=== PATIENT | female | born 1940 | race Caucasian/White ===

== ENCOUNTER → 2017-10-05 10:18 | Outpatient (CLI) | payer MEDICARE, BC, SELFPAY ==
[2017-10-05 10:47] VITALS: BP 129/78; PULSE 66; RESP 18; TEMP 36.6; O2SAT 97; BMI 27.4
[2017-10-05] MEDS: DENOSUMAB 60 MG/ML ML SQ (10:59)
== END ==
PROVIDERS: Family Provider Internal Medicine; PCP Internal Medicine; Visit Provider Internal Medicine
DX: M81.0 Age-related osteoporosis without current pathological fracture (principal)
CPT/HCPCS: 96372

== ENCOUNTER → 2018-04-09 08:50 | Outpatient (CLI) | payer MEDICARE, BC, SELFPAY ==
[2018-04-09 08:59] VITALS: BP 115/66; PULSE 72; RESP 18; TEMP 36.1; O2SAT 99; BMI 27.4
[2018-04-09] MEDS: DENOSUMAB 60 MG/ML ML SQ (09:02)
== END ==
PROVIDERS: Family Provider Internal Medicine; PCP Internal Medicine; Visit Provider Internal Medicine
DX: M81.0 Age-related osteoporosis without current pathological fracture (principal)
CPT/HCPCS: 96372; J0897

== ENCOUNTER → 2018-06-06 09:19 | Outpatient (CLI) | payer MEDICARE, BC, SELFPAY ==
--- NOTE | 2018-06-06 09:22 | BI_ITS ---
MAMMOGRAPHY - BILATERAL SCREENING REASON FOR EXAM: Female, 77 years old. Routine annual screening examination. PERTINENT HISTORY: Non-contributory. TECHNIQUE: Digital bilateral breast sammy (3D mammographic acquisition) in the CC and MLO projections. 2-D mediolateral oblique (MLO) and craniocaudad (CC) views of both breasts were obtained. CAD: Full Field Digital Mammography with Computer Added Detection was performed. COMPARISON: Comparison is made with prior study dated June 05, 2017 and May 25, 2016. FINDINGS: Breast Composition: The breasts are almost entirely fatty. There are no dominant masses or suspicious calcifications. No other significant abnormalities are identified. There has been no significant change since the prior study. BI/SCREENING MAMM (CAD), BILAT IMPRESSION: Stable bilateral screening mammogram. Yearly follow-up mammogram recommended. (A) ASSESSMENT CATEGORY: BIRADS Category 1: Negative. A letter regarding these results will be sent to the patient by the facility within 30 days. Approximately 10% of breast cancers are not detected by mammography. A normal mammogram should not delay biopsy of a clinically suspicious abnormality. [id number] Electronically Signed: Ion Valverde MD at 11:26 EST Tel [phone], Service support ,
--- NOTE | 2018-06-06 09:24 | BD_ITS ---
STUDY: DUAL ENERGY X-RAY ABSORPTIOMETRY / DXA REASON FOR EXAM: Female, 77 years old. Early menopause. Loss of height. TECHNIQUE: Bone Mineral Density (BMD) measurements of lumbar spine and bilateral hips were obtained. COMPARISON: Comparison is made with prior study dated November 18, 2015. FINDINGS: Lumbar Spine (L1-L4): g/cm2 (0.900) / T-score (-2.2) / Z-score (-0.4) Findings are suggestive of osteopenia with a moderate fracture risk. Left Femur Total: g/cm2 (0.802) / T-score (-1.6) / Z-score (0.3) Left Femoral Neck: g/cm2 (0.798) / T-score (-1.7) / Z-score (0.4) Right Femur Total: g/cm2 (0.946) / T-score (-0.5) / Z-score (1.4) Right Femoral Neck: g/cm2 (0.883) / T-score (-1.1) / Z-score (1.0) The T-Scores on the most recent prior examination were: Lumbar Spine (L1-L4): There has been improvement of bone density since the previous examination. Left Femur Total: which represents a worsening of 5.2%. Right Femur Total: which represents an improvement of 1.3%. BD/Dexa Bone Density Study IMPRESSION: The patient is considered osteopenic as outlined below according to [place] Organization (WHO) criteria with a moderate fracture risk. There has been improvement of bone density since the previous examination. Reference Information: The T-score is the number of standard deviations above or below the standard which is normal for young adults at their peak bone mineral density. The World Health Organization (WHO) interprets the T-scores as follows: Above -1 Normal bone density Between -1 and -2.5 Osteopenia Equal to / or below -2.5 Osteoporosis As a practical clinical guideline, osteopenia may be graded as follows: Mild -1 through -1.5 Moderate -1.6 through -2.0 Severe -2.1 through -2.4 The Z-score is the number of standard deviations above or below age-matched controls. A Z-score of less than -1.5 would be considered abnormal. References: 1. NIH Osteoporosis and Related Bone Diseases http://www.osteo.org 2. International Society for Clinical Densitometry http://www.iscd.org 3. National Osteoporosis Foundation http://www.nof.org Electronically Signed: Ion Valverde MD at 8:57 EST Tel [phone], Service support ,
== END ==
PROVIDERS: Family Provider Internal Medicine; PCP Internal Medicine; Referring Provider Internal Medicine; Visit Provider Internal Medicine
DX: Z12.31 Encounter for screening mammogram for malignant neoplasm of breast (principal); Z78.0 Asymptomatic menopausal state
CPT/HCPCS: 77063; 77067; 77080

== ENCOUNTER → 2018-10-08 08:57 | Outpatient (CLI) | payer MEDICARE, BC, SELFPAY ==
[2018-04-09 08:59] VITALS: BMI 27.4
[2018-10-08] MEDS: DENOSUMAB 60 MG/ML ML SQ (09:17)
[2018-10-08 09:20] VITALS: BP 112/58; PULSE 77; RESP 16; TEMP 36; O2SAT 97; BMI 27.4
== END ==
PROVIDERS: Family Provider Internal Medicine; PCP Internal Medicine; Visit Provider Internal Medicine
DX: M81.0 Age-related osteoporosis without current pathological fracture (principal)
CPT/HCPCS: 96372; J0897

== ENCOUNTER → 2019-04-10 12:52 | Outpatient (CLI) | payer MEDICARE, BC, SELFPAY ==
[2018-10-08 09:20] VITALS: BMI 27.4
[2019-04-10 13:12] VITALS: BP 125/69; PULSE 58; RESP 16; TEMP 36.8; O2SAT 99; BMI 28.0
[2019-04-10] MEDS: DENOSUMAB 60 MG/ML ML SQ (13:17)
== END ==
PROVIDERS: Family Provider Internal Medicine; PCP Internal Medicine; Referring Provider Internal Medicine; Visit Provider Internal Medicine
DX: M81.0 Age-related osteoporosis without current pathological fracture (principal)
CPT/HCPCS: 96372; J0897

== ENCOUNTER → 2019-06-07 09:51 | Outpatient (CLI) | payer MEDICARE, BC, SELFPAY ==
[2018-10-08 09:20] VITALS: BMI 27.4
[2019-04-10 13:12] VITALS: BMI 28.0
--- NOTE | 2019-06-07 09:52 | BI_ITS ---
MAMMOGRAPHY - BILATERAL SCREENING REASON FOR EXAM: Female, 78 years old. Routine annual screening examination. PERTINENT HISTORY: Non-contributory. TECHNIQUE: Digital bilateral breast sammy (3D mammographic acquisition) in the CC and MLO projections. 2-D mediolateral oblique (MLO) and craniocaudad (CC) views of both breasts were obtained. CAD: Full Field Digital Mammography with Computer Added Detection was performed. COMPARISON: Comparison is made with prior examination dated June 06, 2018 and June 05, 2017. FINDINGS: Breast Composition: The breasts are almost entirely fatty. There are no dominant masses or suspicious calcifications. No other significant abnormalities are identified. There has been no significant change since the prior study. BI/SCREENING MAMM (CAD), BILAT IMPRESSION: Stable bilateral screening mammogram. Yearly follow-up mammogram recommended. (A) ASSESSMENT CATEGORY: BIRADS Category 1: Negative. A letter regarding these results will be sent to the patient by the facility within 30 days. Approximately 10% of breast cancers are not detected by mammography. A normal mammogram should not delay biopsy of a clinically suspicious abnormality. [id number] Electronically Signed: Ion Valverde, at 11:23 EST , Service support ,
== END ==
PROVIDERS: Family Provider Internal Medicine; PCP Internal Medicine; Referring Provider Internal Medicine; Visit Provider Internal Medicine
DX: Z12.31 Encounter for screening mammogram for malignant neoplasm of breast (principal)
CPT/HCPCS: 77063; 77067

== ENCOUNTER → 2019-08-02 12:39 | Outpatient (CLI) | payer MEDICARE, BC, SELFPAY ==
[2019-04-10 13:12] VITALS: BMI 28.0
--- NOTE | 2019-08-02 12:46 | ECHOD_ITS ---
Reason For Study: Mitral regurgitation Procedure This was a 2D Doppler, Color Flow transthoracic echocardiogram. Exam performed in department. Left Ventricle Normal LV size. Left ventricular systolic function is normal. The estimated ejection fraction is 60 %. Stage 1 diastolic dysfunction. No regional wall motion abnormalities noted. Right Ventricle Normal RV size. Normal systolic function. Atria Normal left atrium. Normal right atrium. Hypermobile atrial septum. Patent foramen ovale. Mitral Valve Normal mitral valve. Mild (1+) eccentric mitral valve insufficiency. Tricuspid Valve Normal tricuspid valve. Mild tricuspid valve insufficiency. Aortic Valve Trisinus/trileaflet aortic valve. Pulmonic Valve Normal pulmonic valve. Great Vessels Normal aortic root. The pulmonary artery is normal size. Normal inferior vena cava. Pericardium/Pleural No pericardial effusion. Medication 22 gauge I.V. with prn adaptor inserted into right arm. Performed a rapid injection of agitated mix of 9 cc saline and 1cc air to assess for atrial septal defect. MMode/2D Measurements & Calculations LVIDd: 3.7 cm IVSd: 0.91 cm Ao root diam: 3.3 cm LVIDs: 2.2 cm LVPWd: 0.86 cm RVDd: 2.7 cm FS: 39.4 % LAV(MOD-bp): 44.8 ml LA A4 area: 15.7 cm2 LA dimension(2D): 3.2 cm LAV(MOD-bp) Indexed: 25.5 ml/m2 LAV(MOD-sp2): 50.3 ml LAV(MOD-sp4): 37.5 ml RA A4 area: 12.3 cm2 Doppler Measurements & Calculations MV E max johnny: 82.6 cm/sec Lat Peak E' Johnny: 9.8 cm/sec Med Peak E' Johnny: 5.8 cm/sec MV A max johnny: 108.5 cm/sec E/E' lat: 8.5 E/E' med: 14.4 MV E/A: 0.76 Ao V2 max: 168.2 cm/sec LV V1 max: 107.6 cm/sec PA V2 max: 92.3 cm/sec Ao max P.3 mmHg LV V1 max P.6 mmHg TR max johnny: 210.3 cm/sec TR max P.7 mmHg Interpretation Summary Hypermobile atrial septum. Normal LV size. Left ventricular systolic function is normal. The estimated ejection fraction is 60 %. Stage 1 diastolic dysfunction. Mild (1+) eccentric mitral valve insufficiency. Patent foramen ovale. Ordering Physician: Trudy Irby Referring Physician: Trudy Irby Performed By: Marlyn Monroe RDCS
== END ==
PROVIDERS: Family Provider Internal Medicine; PCP Internal Medicine; Referring Provider Internal Medicine; Visit Provider Internal Medicine
DX: I34.0 Nonrheumatic mitral (valve) insufficiency (principal)
CPT/HCPCS: 93306; A4216

== ENCOUNTER → 2019-10-08 11:18 | Outpatient (CLI) | payer MEDICARE, BC, SELFPAY ==
[2019-04-10 13:12] VITALS: BMI 28.0
[2019-10-08 11:29] VITALS: BP 134/57; PULSE 62; RESP 16; TEMP 36.2; O2SAT 99; BMI 27.4
[2019-10-08] MEDS: DENOSUMAB 60 MG/ML ML SQ (11:40)
== END ==
PROVIDERS: Family Provider Internal Medicine; PCP Internal Medicine; Referring Provider Internal Medicine; Visit Provider Internal Medicine
DX: M81.0 Age-related osteoporosis without current pathological fracture (principal)
CPT/HCPCS: 96372; J0897

== ENCOUNTER → 2020-04-15 11:22 | Outpatient (CLI) | payer MEDICARE, BC, SELFPAY ==
[2019-10-08 11:29] VITALS: BMI 27.4
[2020-04-15 11:49] VITALS: BP 111/63; PULSE 59; RESP 12; TEMP 36.2; O2SAT 97; BMI 28.3
[2020-04-15] MEDS: DENOSUMAB 60 MG/ML SQ (11:55)
== END ==
PROVIDERS: PCP Internal Medicine; Referring Provider Internal Medicine; Visit Provider Internal Medicine
DX: M81.0 Age-related osteoporosis without current pathological fracture (principal)
CPT/HCPCS: 96372; J0897

== ENCOUNTER → 2020-06-10 11:23 | Outpatient (CLI) | payer MEDICARE, BC, SELFPAY ==
[2019-10-08 11:29] VITALS: BMI 27.4
[2020-04-15 11:49] VITALS: BMI 28.3
--- NOTE | 2020-06-10 11:25 | BI_ITS ---
MAMMOGRAPHY - BILATERAL SCREENING REASON FOR EXAM: Female, 79 years old. Routine annual screening examination. PERTINENT HISTORY: Non-contributory. TECHNIQUE: Digital bilateral breast shashank (3D mammographic acquisition) in the CC and MLO projections. 2-D mediolateral oblique (MLO) and craniocaudad (CC) views of both breasts were obtained. CAD: Full Field Digital Mammography with Computer Added Detection was performed. COMPARISON: Comparison is made with prior study dated 06/07/2019 and 06/06/2018. FINDINGS: Breast Composition: The breasts are almost entirely fatty. There are no dominant masses or suspicious calcifications. No other significant abnormalities are identified. There has been no significant change since the prior study. BI/SCREEN MAMM (CAD) W/SHASHANK BILAT IMPRESSION: Stable bilateral screening mammogram. Yearly follow-up mammogram recommended. (A) ASSESSMENT CATEGORY: BIRADS Category 1: Negative. A letter regarding these results will be sent to the patient by the facility within 30 days. Approximately 10% of breast cancers are not detected by mammography. A normal mammogram should not delay biopsy of a clinically suspicious abnormality. [id number] Electronically Signed: Ion Valverde, at 13:55 EST , Service support ,
--- NOTE | 2020-06-10 11:30 | BD_ITS ---
STUDY: DUAL ENERGY X-RAY ABSORPTIOMETRY / DXA REASON FOR EXAM: Female, 79 years old. 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 COMPARISON: Comparison is made with prior study dated 06/06/2018. FINDINGS: Lumbar Spine (L1-L4): g/cm2 (0.937) / T-score (-1.9) / Z-score (0.0) Findings are suggestive of osteopenia with a moderate fracture risk. Left Femur Total: g/cm2 (0.822) / T-score (-1.5) / Z-score (0.6) Left Femoral Neck: g/cm2 (0.803) / T-score (-1.7) / Z-score (0.5) Right Femur Total: g/cm2 (0.947) / T-score (-0.5) / Z-score (1.6) Right Femoral Neck: g/cm2 (0.906) / T-score (-1.0) / Z-score (1.2) The T-Scores on the most recent prior examination were: Lumbar Spine (L1-L4): There has been improvement of bone density since the previous examination. Left Femur Total: which represents an improvement of 2.5%. Right Femur Total: which represents an improvement of 0.1%. BD/Dexa Bone Density Study IMPRESSION: The patient is considered osteopenic as outlined below according to [place] Organization (WHO) criteria with a moderate fracture risk. There has been improvement of bone density since the previous examination. Reference Information: The T-score is the number of standard deviations above or below the standard which is normal for young adults at their peak bone mineral density. The World Health Organization (WHO) interprets the T-scores as follows: Above -1 Normal bone density Between -1 and -2.5 Osteopenia Equal to / or below -2.5 Osteoporosis As a practical clinical guideline, osteopenia may be graded as follows: Mild -1 through -1.5 Moderate -1.6 through -2.0 Severe -2.1 through -2.4 The Z-score is the number of standard deviations above or below age-matched controls. A Z-score of less than -1.5 would be considered abnormal. References: 1. NIH Osteoporosis and Related Bone Diseases www osteo.org 2. International Society for Clinical Densitometry www iscd.org 3. National Osteoporosis Foundation www nof.org Electronically Signed: Ion Valverde, at 14:21 EST , Service support ,
== END ==
PROVIDERS: PCP Internal Medicine; Referring Provider Nurse Practitioner; Visit Provider Nurse Practitioner
DX: Z12.31 Encounter for screening mammogram for malignant neoplasm of breast (principal); M81.0 Age-related osteoporosis without current pathological fracture; N18.30 Chronic kidney disease, stage 3 unspecified
CPT/HCPCS: 77063; 77067; 77080

== ENCOUNTER 2020-08-20 09:24 | Outpatient (RCR) | payer MEDICARE, BC, SELFPAY ==
[2020-04-15 11:49] VITALS: BMI 28.3
== END 2020-08-20 23:59 ==
LOC: IMMUN 09:24
PROVIDERS: PCP Internal Medicine; Visit Provider Family Medicine
DX: Z23 Encounter for immunization (principal)
CPT/HCPCS: 0011A; 0012A; 91301

== ENCOUNTER → 2020-10-14 11:22 | Outpatient (CLI) | payer MEDICARE, BC, SELFPAY ==
[2019-10-08 11:29] VITALS: BMI 27.4
[2020-04-15 11:49] VITALS: BMI 28.3
[2020-10-14 11:31] VITALS: BP 147/65; PULSE 63; RESP 16; TEMP 36.1; O2SAT 97; BMI 27.4
[2020-10-14] MEDS: DENOSUMAB 60 MG/ML SC (11:35)
== END ==
PROVIDERS: PCP Internal Medicine; Referring Provider Internal Medicine; Visit Provider Internal Medicine
DX: M81.0 Age-related osteoporosis without current pathological fracture (principal)
CPT/HCPCS: 96372; J0897

== ENCOUNTER → 2021-04-14 12:58 | Outpatient (CLI) | payer MEDICARE, BC, SELFPAY ==
[2020-04-15 11:49] VITALS: BMI 28.3
[2021-04-14] MEDS: DENOSUMAB 60 MG/ML SC (13:13)
[2021-04-14 13:17] VITALS: BP 130/71; PULSE 67; RESP 16; TEMP 36.6; O2SAT 97; BMI 28.3
== END ==
PROVIDERS: PCP Internal Medicine; Referring Provider Internal Medicine; Visit Provider Internal Medicine
DX: M81.0 Age-related osteoporosis without current pathological fracture (principal)
CPT/HCPCS: 96372; J0897

== ENCOUNTER 2021-10-13 13:46 | Outpatient (CLI) | payer MEDICARE, BC, SELFPAY ==
[2021-10-13 13:56] VITALS: BP 130/64; PULSE 69; RESP 16; O2SAT 98
[2021-10-13] MEDS: DENOSUMAB 60 MG/ML SC (14:00)
== END 2021-10-13 23:59 | disposition home or self-care (01) ==
LOC: MEDOUTP 13:47
PROVIDERS: PCP Internal Medicine; Referring Provider Internal Medicine; Visit Provider Internal Medicine
DX: M81.0 Age-related osteoporosis without current pathological fracture (principal)
CPT/HCPCS: 96372; J0897

== ENCOUNTER → 2022-04-13 | Outpatient (CLI) | payer MEDICARE, BC, SELFPAY ==
[2022-04-13] MEDS: DENOSUMAB 60 MG/ML SC (14:12)
[2022-04-13 14:15] VITALS: BP 122/61; PULSE 69; RESP 16; TEMP 36.1; O2SAT 94
== END | disposition home or self-care (01) ==
LOC: MEDOUTP 13:57
PROVIDERS: PCP Internal Medicine; Referring Provider Internal Medicine; Visit Provider Internal Medicine
DX: M81.0 Age-related osteoporosis without current pathological fracture (principal)
CPT/HCPCS: 96372; J0897

== ENCOUNTER → 2022-06-14 | Outpatient (CLI) | payer MEDICARE, BC, SELFPAY ==
--- NOTE | 2022-06-14 12:55 | BI_ITS ---
MAMMOGRAPHY - BILATERAL SCREENING REASON FOR EXAM: Female, 81 years old. Routine annual screening examination. PERTINENT HISTORY: Non-contributory. TECHNIQUE: Digital bilateral breast shashank (3D mammographic acquisition) in the CC and MLO projections. 2-D mediolateral oblique (MLO) and craniocaudad (CC) views of both breasts were obtained. CAD: Full Field Digital Mammography with Computer Added Detection was performed. COMPARISON: Comparison is made with prior study dated 06/10/2020 and 06/07/2019. FINDINGS: Breast Composition: The breasts are almost entirely fatty. There are no dominant masses or suspicious calcifications. No other significant abnormalities are identified. There has been no significant change since the prior study. BI/SCRN MAMM (CAD)W/SHASHANK BILAT IMPRESSION: Stable bilateral screening mammogram. Yearly follow-up mammogram recommended. (A) ASSESSMENT CATEGORY: BIRADS Category 1: Negative. A letter regarding these results will be sent to the patient by the facility within 30 days. Approximately 10% of breast cancers are not detected by mammography. A normal mammogram should not delay biopsy of a clinically suspicious abnormality. [id number] Electronically Signed: Ion Valverde MD at 13:50 EST ,
--- NOTE | 2022-06-14 13:00 | BD_ITS ---
STUDY: DUAL ENERGY X-RAY ABSORPTIOMETRY / DXA REASON FOR EXAM: Female, 81 years old. [id number] TECHNIQUE: Bone Mineral Density (BMD) measurements of lumbar spine and bilateral hips were obtained. COMPARISON: June 10, 2020. FINDINGS: Lumbar Spine (L1-L4): g/cm2 (0.849) / T-score (-1.8) / Z-score (1.0) Findings are suggestive of osteopenia with a increased fracture risk. Left Femur Total: g/cm2 (0.787) / T-score (-1.3) / Z-score (0.9) Left Femoral Neck: g/cm2 (0.683) / T-score (-1.5) / Z-score (0.9) Right Femur Total: g/cm2 (0.864) / T-score (-0.6) / Z-score (1.6) Right Femoral Neck: g/cm2 (0.755) / T-score (-0.9) / Z-score (1.6) The T-Scores on the most recent prior examination were: Lumbar Spine (L1-L4): There has been of bone density since the previous examination. Left Femur Total: . No significant change Right Femur Total: . No significant change BD/Dexa Bone Density Study IMPRESSION: The patient is considered osteopenic in the left hip only as outlined below according to World [place] Organization (WHO) criteria with a increased fracture risk. There has been no significant change of bone density since the previous examination. Reference Information: The T-score is the number of standard deviations above or below the standard which is normal for young adults at their peak bone mineral density. The World Health Organization (WHO) interprets the T-scores as follows: Above -1 Normal bone density Between -1 and -2.5 Osteopenia Equal to / or below -2.5 Osteoporosis As a practical clinical guideline, osteopenia may be graded as follows: Mild -1 through -1.5 Moderate -1.6 through -2.0 Severe -2.1 through -2.4 The Z-score is the number of standard deviations above or below age-matched controls. A Z-score of less than -1.5 would be considered abnormal. References: 1. NIH Osteoporosis and Related Bone Diseases www osteo.org 2. International Society for Clinical Densitometry www iscd.org 3. National Osteoporosis Foundation www nof.org Electronically Signed: Frederic Mccray MD at 19:35 EST ,
== END | disposition home or self-care (01) ==
LOC: OPBD 12:53
PROVIDERS: PCP Internal Medicine; Visit Provider Nurse Practitioner
DX: Z12.31 Encounter for screening mammogram for malignant neoplasm of breast (principal); Z78.0 Asymptomatic menopausal state
CPT/HCPCS: 77063; 77067; 77080

== ENCOUNTER → 2022-10-13 | Outpatient (CLI) | payer MEDICARE, BC, SELFPAY ==
[2022-10-13 14:25] VITALS: BP 141/40; RESP 16; TEMP 35.8; O2SAT 68
[2022-10-13] MEDS: DENOSUMAB 60 MG/ML SC (14:27)
== END | disposition home or self-care (01) ==
LOC: MEDOUTP 14:20
PROVIDERS: PCP Internal Medicine; Referring Provider Internal Medicine; Visit Provider Internal Medicine
DX: M86.00 Acute hematogenous osteomyelitis, unspecified site (principal); M81.0 Age-related osteoporosis without current pathological fracture
CPT/HCPCS: 96372; J0897

== ENCOUNTER 2023-04-19 12:40 | Outpatient (CLI) | payer MEDICARE, BC, SELFPAY ==
[2023-04-19 12:52] VITALS: BP 124/49; PULSE 57; RESP 16; TEMP 36.3; O2SAT 97; BMI 25.7
[2023-04-19] MEDS: DENOSUMAB 60 MG/ML SC (12:54)
== END 2023-04-19 12:41 | disposition home or self-care (01) ==
LOC: MEDOUTP 12:40
PROVIDERS: PCP Internal Medicine; Referring Provider Internal Medicine; Visit Provider Internal Medicine
DX: M81.0 Age-related osteoporosis without current pathological fracture (principal)
CPT/HCPCS: 96372; J0897

== ENCOUNTER → 2023-06-21 | Outpatient (CLI) | payer MEDICARE, BC, SELFPAY ==
--- NOTE | 2023-06-21 09:05 | BI_ITS ---
MAMMOGRAPHY - BILATERAL SCREENING REASON FOR EXAM: Female, 82 years old. Routine annual screening examination. PERTINENT HISTORY: Non-contributory. TECHNIQUE: Digital bilateral breast shashank (3D mammographic acquisition) in the CC and MLO projections. 2-D mediolateral oblique (MLO) and craniocaudad (CC) views of both breasts were obtained. CAD: Full Field Digital Mammography with Computer Added Detection was performed. COMPARISON: Comparison is made with prior study dated June 14, 2022 and June 10, 2020. FINDINGS: Breast Composition: The breasts are almost entirely fatty. There are no dominant masses or suspicious calcifications. No other significant abnormalities are identified. There has been no significant change since the prior study. BI/SCRN MAMM (CAD)W/SHASHANK BILAT IMPRESSION: Stable bilateral screening mammogram. Yearly follow-up mammogram recommended. (A) ASSESSMENT CATEGORY: BIRADS Category 1: Negative. A letter regarding these results will be sent to the patient by the facility within 30 days. Approximately 10% of breast cancers are not detected by mammography. A normal mammogram should not delay biopsy of a clinically suspicious abnormality. [id number] Electronically Signed: Ion Valverde MD at 14:34 EST ,
== END | disposition home or self-care (01) ==
LOC: OPBI 09:03
PROVIDERS: PCP Internal Medicine; Referring Provider Nurse Practitioner Family; Visit Provider Nurse Practitioner Family
DX: Z12.31 Encounter for screening mammogram for malignant neoplasm of breast (principal)
CPT/HCPCS: 77063; 77067

== ENCOUNTER 2023-10-11 12:55 | Outpatient (CLI) | payer MEDICARE, BC, SELFPAY ==
[2023-10-11 13:10] VITALS: BP 127/56; PULSE 60; RESP 16; TEMP 36.3; O2SAT 98
[2023-10-11] MEDS: DENOSUMAB 60 MG/ML SC (13:19)
== END 2023-10-11 12:56 | disposition home or self-care (01) ==
LOC: MEDOUTP 12:57
PROVIDERS: PCP Internal Medicine; Referring Provider Nurse Practitioner Family; Visit Provider Nurse Practitioner Family
DX: M81.0 Age-related osteoporosis without current pathological fracture (principal)
CPT/HCPCS: 96372; J0897

== ENCOUNTER 2024-04-12 12:53 | Outpatient (CLI) | payer MEDICARE, BC, SELFPAY ==
[2024-04-12] MEDS: DENOSUMAB 60 MG/ML SC (13:16)
[2024-04-12 13:20] VITALS: BP 123/78; PULSE 68; RESP 16; TEMP 35.8; BMI 26.5
== END 2024-04-12 23:59 | disposition home or self-care (01) ==
LOC: MEDOUTP 12:54
PROVIDERS: PCP Internal Medicine; Referring Provider Internal Medicine; Visit Provider Internal Medicine
DX: M81.0 Age-related osteoporosis without current pathological fracture (principal)
CPT/HCPCS: 96372; J0897

== ENCOUNTER 2024-10-09 12:57 | Outpatient (CLI) | payer MEDICARE, BC, SELFPAY ==
[2024-10-09] MEDS: DENOSUMAB 60 MG/ML SC (13:05)
[2024-10-09 13:08] VITALS: BP 157/69; PULSE 66; RESP 14; TEMP 36.1; O2SAT 97; BMI 26.5
== END 2024-10-09 23:59 | disposition home or self-care (01) ==
LOC: MEDOUTP 12:58
PROVIDERS: PCP Internal Medicine; Referring Provider Internal Medicine; Visit Provider Internal Medicine
DX: M81.0 Age-related osteoporosis without current pathological fracture (principal)
CPT/HCPCS: 96372; J0897

== ENCOUNTER → 2024-11-26 | Outpatient (CLI) | payer MEDICARE, BC, SELFPAY ==
--- NOTE | 2024-11-26 12:17 | BI_ITS ---
EXAM: SCRN MAMM (CAD)W/SHASHANK BILAT 11/26/2024 CLINICAL HISTORY: F, Age 84 y/o , SCRN MAMM (CAD)W/SHASHANK BILAT TECHNIQUE: Bilateral screening digital breast tomosynthesis with 2D and 3D images. Computer aided detection. COMPARISON: Prior exam(s) dated 06/21/2023, 06/14/2022, 06/10/2020. FINDINGS: TISSUE DENSITY: The breast tissue is almost entirely fatty. Bilateral Breast Mammographic Findings: No significant masses, calcifications or other abnormalities are identified. BI/SCRN MAMM (CAD)W/SHASHANK BILAT IMPRESSION: Right Breast: BIRADS 1 NEGATIVE. Left Breast: BIRADS 1 NEGATIVE. OVERALL FINAL ASSESSMENT: BIRADS 1 NEGATIVE. RECOMMENDATION: Routine annual follow-up in 1 Year A letter with findings and recommendations will be mailed to the patient. Reading Location: [id number]
--- NOTE | 2024-11-26 12:23 | BD_ITS ---
PROCEDURE: DEXA BONE DENSITY STUDY REASON FOR EXAM: None provided TECHNIQUE: DEXA scan of the lumbar spine and bilateral hips, using a Hologic Horizon W unit. REFERENCE LINKS: ISCD Adult Positions COMPARISON: 06/14/2022 FINDINGS: LUMBAR SPINE: Bone mineral denisty, L1-L4: 0.795 g/cm??? T-score: -2.2 LEFT FEMORAL NECK: Bone mineral denisty: 0.702 g/cm??? T-score: -1.3 LEFT TOTAL HIP: Bone mineral denisty: 0.826 g/cm??? T-score: -1.0 RIGHT FEMORAL NECK: Bone mineral denisty: 0.787 g/cm??? T-score: -0.6 RIGHT TOTAL HIP: Bone mineral denisty: 0.895 g/cm??? T-score: -0.4 FRAX*: 10 Year Probability of Fracture: Major Osteoporotic Fracture(1): 13.0% Hip Fracture(2): 3.2% *FRAX is a trademark of the [employer]'s [place] for Metabolic Bone Disease, World Health Organization (WHO) Collaborating [place]. 1-Major Osteoporotic Fracture: Clinical Spine, Forearm, Hip or Shoulder. 2-The 10-year probability of fracture may be lower than reported if the patient has received treatment. The National Osteoporosis Foundation recommends that medical therapy be considered in postmenopausal women and men, age 50 and older, with a: * hip or vertebral fracture * T-score less than or equal to -2.5 in the spine or hip * T-score between -1.0 and -2.5 and FRAX equal to or less than 3 percent for hip fracture or equal to or less than 20 percent for major osteoporotic fracture. World Health Organization criteria for BMD interpretation classify patients as Normal (T-score at or above -1.0), Osteopenic (T-score between -1.0 and -2.5), or Osteoporotic (T-score at or below -2.5). BD/Dexa Bone Density Study IMPRESSION: 1. Osteopenia. 2. Since the prior exam, there has been a decrease of 4.9% in the bone mineral density of the lumbar spine. 3. Additional description as above. Reading Location: [id number]
== END | disposition home or self-care (01) ==
LOC: OPBD 12:16
PROVIDERS: PCP Internal Medicine; Referring Provider Nurse Practitioner Family; Visit Provider Nurse Practitioner Family
DX: Z12.31 Encounter for screening mammogram for malignant neoplasm of breast (principal); M85.88 Other specified disorders of bone density and structure, other site
CPT/HCPCS: 77063; 77067; 77080

== ENCOUNTER → 2024-12-13 | Outpatient (CLI) | payer MEDICARE, BC, SELFPAY ==
--- NOTE | 2024-12-13 12:56 | ECHOD_ITS ---
Reason For Study Reason For Study: DIASTOLIC DYSFUNCTION Procedure This was a 2D Doppler, Color Flow transthoracic echocardiogram. Exam performed in department. Left Ventricle Normal LV size. The left ventricular ejection fraction is 65 %. Stage 1 diastolic dysfunction. No regional wall motion abnormalities noted. Right Ventricle Normal RV size. Normal systolic function. Atria Normal left atrium. Normal right atrium. Mitral Valve Normal mitral valve. Tricuspid Valve Normal tricuspid valve. Mild tricuspid valve insufficiency. Pulmonary artery systolic pressure is 25 mmHg. Aortic Valve Trisinus/trileaflet aortic valve. Mild focal aortic valve calcification. Peak aortic valve gradient 18 mmHg. Mean aortic valve gradient 10 mmHg. Mild aortic stenosis. Pulmonic Valve Normal pulmonic valve. Great Vessels Normal aortic root. The pulmonary artery is normal size. Inferior vena cava collapse with respiration. Pericardium/Pleural No pericardial effusion. MMode/2D Measurements & Calculations LVIDd: 4.0 cm IVSd: 0.95 cm LVOT diam: 2.0 cm LVIDs: 2.5 cm LVPWd: 0.98 cm LVOT area: 3.2 cm2 RVDd: 3.3 cm FS: 36.5 % Ao root diam: 2.4 cm LAV(MOD-bp): 28.7 ml LVAd ap4: 22.6 cm2 LAV(MOD-bp) Indexed: 16.5 ml/m2 LVLd ap4: 6.6 cm LAV(MOD-sp2): 32.3 ml EDV(MOD-sp4): 61.2 ml LAV(MOD-sp4): 25.2 ml EDV(sp4-el): 65.0 ml LVAs ap4: 11.9 cm2 LVLs ap4: 5.6 cm ESV(MOD-sp4): 20.7 ml ESV(sp4-el): 21.4 ml EF(MOD-sp4): 66.2 % EF(sp4-el): 67.1 % SV(MOD-sp4): 40.5 ml SV(sp4-el): 43.6 ml LA A4 area: 12.6 cm2 SI(MOD-sp4): 23.3 ml/m2 LA dimension(2D): 3.2 cm RA A4 area: 9.7 cm2 TAPSE: 1.7 cm Time Measurements MV dec time: 0.32 sec Doppler Measurements & Calculations MV E max johnny: 72.8 cm/sec Lat Peak E' Johnny: 10.6 cm/sec Med Peak E' Johnny: 6.8 cm/sec MV A max johnny: 102.9 cm/sec E/E' lat: 6.8 E/E' med: 10.7 MV E/A: 0.71 Ao V2 max: 211.0 cm/sec LV V1 max: 109.3 cm/sec SV(LVOT): 79.1 ml Ao max P.8 mmHg LV V1 max P.8 mmHg Ao V2 mean: 145.1 cm/sec LV V1 mean P.6 mmHg Ao mean P.6 mmHg LV V1 mean: 76.8 cm/sec Ao V2 VTI: 44.9 cm LV V1 VTI: 24.9 cm AV (velocity ratio): 0.55 DEEP(I,D): 1.8 cm2 DEEP(V,D): 1.6 cm2 PA V2 max: 117.9 cm/sec TR max johnny: 239.5 cm/sec TR max P.9 mmHg ECHO/Echo Complete Interpretation Summary Normal LV size. The left ventricular ejection fraction is 65 %. Stage 1 diastolic dysfunction. Mild focal aortic valve calcification. Mean aortic valve gradient 10 mmHg. Mild aortic stenosis. Ordering Physician: Shara Edgar Referring Physician: JACQUELYN LIMA Performed By: Rossi Meade RDCS
--- NOTE | 2024-12-13 12:56 | CDU_ITS ---
Reason For Study Reason For Study: Carotid Bruit Rt. Velocities/BP Lt. Velocities/BP Prox CCA 79/11 cm/sec. Prox CCA 108/11 cm/sec. Mid CCA 48/9 cm/sec. Mid CCA 71/15 cm/sec. Dist CCA 55/13 cm/sec. Dist CCA 53/13 cm/sec. Prox ICA 173/36 cm/sec. Prox ICA 56/15 cm/sec. Mid ICA 117/27 cm/sec. Mid ICA 83/31 cm/sec. Dist ICA 102/31 cm/sec. Dist ICA 127/42 cm/sec. Rt. ICA/CCA = 3.6. Lt. ICA/CCA = 1.8. Prox ECA 71/7 cm/sec. Prox ECA 104/4 cm/sec. Rt. Vert. 55/11 cm/sec. Lt. Vert. 52/16 cm/sec. Right Extracranial There is heterogeneous, irregular atherosclerotic plaque noted in the right common carotid artery. There is heterogeneous, irregular atherosclerotic plaque noted in the right internal carotid artery. There is intimal thickening but no significant atherosclerotic plaque noted in the right external carotid artery. Antegrade flow is noted in the right vertebral artery. Left Extracranial There is heterogeneous, irregular atherosclerotic plaque noted in the left common carotid artery. There is heterogeneous, irregular atherosclerotic plaque noted in the left internal carotid artery. There is heterogeneous, irregular atherosclerotic plaque noted in the left external carotid artery. Antegrade flow is noted in the left vertebral artery. Procedure Carotid Duplex [id number]. This is a Carotid Duplex examination using B-mode, color flow and specral Doppler. Exam performed in department. VL/Carotid Duplex Ultrasound Interpretation Summary Moderate (50-69%) stenosis right extracranial internal carotid. Moderate (50-69%) stenosis left extracranial internal carotid. Patent and antegrade vertebrals bilaterally. Ordering Physician: Shara Edgar Referring Physician: Trudy Irby Performed By: Kendra Mariee, RDCS, RVT
== END | disposition home or self-care (01) ==
LOC: CVS 12:56
PROVIDERS: PCP Internal Medicine; Referring Provider Nurse Practitioner Family; Visit Provider Nurse Practitioner Family
DX: I51.89 Other ill-defined heart diseases (principal); R09.89 Other specified symptoms and signs involving the circulatory and respiratory systems
CPT/HCPCS: 93306; 93880

== ENCOUNTER 2025-04-09 11:12 | Outpatient (CLI) | payer MEDICARE, BC, SELFPAY ==
[2025-04-09 11:18] VITALS: BP 126/60; PULSE 79; RESP 16; TEMP 35.5; O2SAT 98; BMI 25.7
[2025-04-09] MEDS: DENOSUMAB 60 MG/ML SC (11:50)
== END 2025-04-09 23:59 | disposition home or self-care (01) ==
LOC: MEDOUTP 11:12
PROVIDERS: PCP Internal Medicine; Referring Provider Internal Medicine; Visit Provider Internal Medicine
DX: M81.0 Age-related osteoporosis without current pathological fracture (principal)
CPT/HCPCS: 96372; J0897

== ENCOUNTER → 2025-07-21 | Outpatient (CLI) | payer MEDICARE, BC, SELFPAY ==
[2025-07-21 09:21] LABS: Hematocrit 38.2 % (37-47); Hemoglobin 12.9 g/dL (12.0-15.0); Mean Corp Hgb Conc 33.8 g/dL (32-36); Mean Corpuscular Volume 95.5 fL (81-99); Mean Platelet Vol. 8.8 fl (6.2-12.0); Platelet Count 243 K/mm3 (150-450); RBC Distribution Width CV 12.3 % (11.6-14.6); RBC Distribution Width SD 43.2 fl (35.1-43.9); Red Blood Count 4.00 M/mm3 (4.2-5.4); White Blood Count 6.2 K/mm3 (4.4-11.0)
[2025-07-21 09:42] LABS: Creatinine, Urine (random) 104.00 mg/dL (28.00-217.00); Microalbumin,Random Urine < 12.0 mg/L (<20 mg/L)
[2025-07-21 10:05] LABS: AST(SGOT) 16 U/L (<=31); Alanine Aminotransfer ALT/SGPT 12 U/L (<=34); Albumin, Serum 4.3 g/dL (3.4-4.8); Alkaline Phosphatase 59 U/L (35-104); Anion Gap 10 (5-15); BUN 16 mg/dL (4-19); BUN/Creat Ratio 14.5 RATIO (10-20); Calcium,Total 9.4 mg/dL (7.6-11.0); Carbon Dioxide 26.3 mmol/L (21.0-32.0); Chloride 104 mmol/L (98-108); Cholesterol 154 mg/dL (<=200); Globulin 2.5 g/dL (2.2-4.2); Glucose 123 mg/dL (70-99); Low Density Lipoprotein Calc. 72 mg/dL; Potassium 4.1 mmol/L (3.3-5.1); Triglycerides 163 mg/dL; Very Low Density Lipoprotein 33 mg/dL (5-40); cholesterol:hdl ratio screen 2.83
== END | disposition home or self-care (01) ==
LOC: LAB 08:48
PROVIDERS: PCP Internal Medicine; Visit Provider Nurse Practitioner Family
DX: E11.9 Type 2 diabetes mellitus without complications (principal); E78.1 Pure hyperglyceridemia; E78.5 Hyperlipidemia, unspecified; I10 Essential (primary) hypertension
CPT/HCPCS: 36415; 80053; 80061; 82043; 82570; 84443; 85027